=== PATIENT | male | born 1980 | race Two or more races ===

== ENCOUNTER 2024-04-02 14:29 | Outpatient (AMB) | payer MEDICAID, SELFPAY ==
[2024-04-02 14:48] VITALS: BP 103/70; PULSE 18; RESP 18; TEMP 36.3; O2SAT 97; BMI 32.8
--- NOTE | 2024-04-02 14:48 | PD.RESCLINIC ---
Vital Signs 04/02/24 14:48 Height 1.7 m Height Method Stated Weight 94.858 kg Weight Measurement Method Standing Scale BMI 32.8 BP 103/70 Blood Pressure Source Automatic Cuff Blood Pressure Location Left Upper Arm Position Sitting Respiration 18 Pulse 18 L Pulse Source Monitor Temp 97.3 F Temp Source Oral Pulse Oximetry (%) 97 Oxygen Delivery Method Room Air Allergies/Meds Allergies & Medications Allergies No Known Allergies Allergy (Verified 03/09/24 14:42) Medication Reconciliation terbinafine HCl 250 mg tablet 250 mg PO QDAY 2 months #30 tabs 12/08/23 [Rx Confirmed 04/02/24] compress.stocking,knee,reg,med ([employer]) #2 ea 01/12/24 [Rx Confirmed 04/02/24] comp.stocking,thigh,long,large #2 ea 02/13/24 [Rx Confirmed 04/02/24] doxycycline hyclate 100 mg capsule 100 mg PO BID paronychia #20 caps 03/03/24 [Rx Confirmed 04/02/24] MA Intake Visit Data Collection New Patient or Established: Established Patient (seen at [facility] within 3 years) Seen by Clinical Staff ONLY (RN/MA): No Pain Present Currently: No Compensation Programs Manager Required: Yes PCP or OBGYN visit in last 3 months: No Do You Feel Safe at Home: Yes Authorities Contacted: N/A Smoking Status Smoking Status: Never smoker Immunization / Flu Flu Vaccine in the Last 12 Months: No Flu Vaccine Exclusion Criteria: Refused by Patient Past Medical History Past Medical History CARDIAC: Negative Congestive Heart Failure RESPIRATORY: Negative Chronic Obstructive Pulmonary Disease (COPD) GENITOURINARY: Negative Renal Disease ENDOCRINE: Negative Diabetes Mellitus Type 1 or Diabetes Mellitus Type 2 Social History SMOKING STATUS: Smoking status: Never smoker ALCOHOL: Alcohol Intake: Never LIVES WITH: Lives With: Family Patient Portal Questionaires Social History Tobacco History Smoking Status: Never smoker Alcohol History Alcohol Intake: Never Domestic Abuse History Do You Feel Safe at Home: Yes Review of Systems Report any current symptoms Only answer those that you have currently: Past Medical History Past Medical History Have you ever been diagnosed with any of the following: Cardiology Problems Congestive Heart Failure: No Respiratory Problems Chronic Obstructive Pulmonary Disease (COPD): No Genital/Urinary Problems Renal Disease: No Endocrine Problems Diabetes Mellitus Type 1: No Diabetes Mellitus Type 2: No History of Present Illness LUCILA Park is a 42-year-old male with history of obesity grade 1 who pre?sented with a chief complaint of right lower extremity pain and swelling. He was found to have sepsis secondary to right lower extremity cellulitis. He continues to have fevers however per ID, this is expected in Streptococcus A cellulitis. Obtained MRI of the lower extremity that showed no abscess formation. Blood cultures are negative to date. ID recommended Keflex and doxycycline for 10-day course with continued elevation of limb. Transaminitis with elevated bilirubin: Downtrended , MRCP showed no common bile duct dilation. 08/13/2023 : Patient presented to the clinic for f/u appt for LLE cellulitis. Patient currently on Doxycycline + Keflex as per ID recommendations. Patient endorses improvement of swelling however now has sero-sanguinous discharge from the swelling on the dorsal aspect of the left foot. Patient also endorsed poor pain control with Celecoxib, he was given another Rx for Tramadol 100mg PRN for 8/10 pain. We will reassess next week, wound care referral placed. Patient may need surgical referral next week if possible underlying abscess formation takes place. F/u appt for next week. 08/20/2023: Patient presented for F/U appt after antibiotic course completion. Pruritis and discharge improved with Mupirocin ointment application. However, patients pain continues to be 8/10. On examination, 2+ Edema up to the RT foot ankle and skin pigmentation 2/2 extravasation, sero-sanguinous discharge on RT dorsal foot. Pt counseled on applying compression bandage to help reduce edema, gauze and crepe bandage applied at the clinic. He is scheduled to establish care at the wound care center on August 25 2023, if pain not controlled with Tramadol, wound care to advance to [place] per their assessment. He has completed the antibiotic course, given improvement of symptoms, we will hold off on antibiotics and start wound care for now. Disability forms were signed. Patient to f/u with us in September,. 08/26/2023: 1 week patient follow-up after being referred to wound clinic, patient's extremities significantly improved only ulcer with serosanguineous discharge noted, covered, being followed by wound care outpatient. Patient refers pain still not under control, oxycodone and Tylenol sent for 10 more days, reevaluate in 3 weeks. Patient denies fever, chills. Cellulitis resolved, antibiotic course finished. 09/03/2023: Patient presents to [facility] for follow up visit. Patient noted to have recent wound care visit where his RLE, dorsal wound was debrided with debridement of the right dorsal foot wound with pathology report showing gangrenous tissue with sheets of neutrophils, and negative for malignancy, negative for fungal elements by GMS special stain, negative for acid-fast organisms by acid-fast bacteria special stain.. Patient also noted that he has been having significant pain at the site of the wound which has disturbed his sleep. He noted that he had been taking Acetaminophen 650 ER q8hrs and oxycodone 10 mg once a day for pain management. Patient was advised to increase oxycodone to 10 mg BID as had been previously prescribed. 09/16/2023 : Follow up visit, patient still undergoing weekly debridement at wound clinic due to gangrenous tissue, patient still has an open ulcer with serosanguinous drainage, non purulent, refers severe pain 9/10, specially at night and while undergoing wound care. During last visit patient's oxycodone dose was increased to BID and refers adequeate control at that dose, we will continue same oxycodone dose for the next month since patient will still need extensive wound care debridement given presense of gangrenous tissue. At next appointment we will try to taper down oxy dose to qday, if tolerated. Patient also noted to have onychomycosis, requesting treatment, Terbinafine qday prescribed for 12 weeks. Continue with wound care appointments and follow up with us in 3 weeks. 10/01/2023 : Here for f/u visit. He is still f/u weekly at the wound clinic for the RT dorsal foot open ulcer. Pt continues to have minimal serosanguinous discharge but pain <3/10. He was given oxycodone BID but advised to only take PRN now. He is switching his insurance and will require authorization for wound care again. Given resolution of swelling form the cellulitis, we recommended removal of pressure bandage. Wound dressing still in place. Encouraged to ambulate with walker, as tolerated. F/u scheduled for 2 months from today. 12/08/2023 : He is here for follow up visit. he is continuously following with wound care his last visit with wound care was on 12/03/2023. He wants refill for his norco and terbinafine. He has a vascular surgeon follow up . His pain is well controlled with norco . Denies nausea, vomiting, pain abdomen, still walks with a waker. 12/12/2023 (Dr Rogers) : Patient presented for a follow-up visit. Continuing wound care at this time, as per economic specialist recommendations from 12/03/2023, patient is to continue wound care irrigation with normal saline, with leg elevation when at rest, and use of compression socks when ambulating. Patient has chronic venous insufficiency causing hyperpigmentation due to extravasation. Mother present in clinic with the patient who had concerns about the hyperpigmentation, all questions answered in detail. Patient to continue following wound care instructions and get 30-40 mm Hg compression socks for ambulation to prevent edema. 01/12/24 : Patient was seen as a walk in. Patient complains of some swelling of the right lower extremities. He continues to have pain that is about 5/10 on the right leg when it swells and has used over the counter tylenol which relieves the pain. Patient denies any other symptoms including SOB, chest pain, palpitations, nausea or vomiting. He has also had a cough with subjective chills and fevers in the past week. Patient was advised to continue taking over the counter tylenol for the leg swelling and follow up with vasacular surgeon for which they have an upcoming appointment for his venous insuficiency. Patient was prescribed compression stockings. 02/13/24 : Patient presented for follow-up appointment, has been consistently following up with wound care at the clinic. He was previously seen on January [address] Rogers at the resident clinic. Patient was advised to take as needed Tylenol for the right lower extremity pain, he was also prescribed compression stockings in November 2023. On further inquiry, patient complains of developing nodular swellings with the use of compression stocking, a new order for large circumference compression stockings placed today. Patient's right lower extremity dorsal ulcer has completely healed, but continues to have extravasation and skin changes up to mid shins. Patient understands and agrees to continue using compression stockings as tolerated. 04/02/2024: Patient seen for follow-up appointment. Seen last month for paronychia/ingrown toenail, prescribed doxycycline, completed full course. Toe symptoms have resolved. Continues to follow with vascular surgery for chronic venous insufficiency. Using compression stockings as tolerated. Continuing oral terbinafine for onychomycosis. Reports no further ulceration on right foot dorsum. Needs updating of routine labs. Review of Systems Review of Systems Narrative Review of Systems: GENERAL: Denies fevers/chills or diaphoresis. HEENT: Denies headache or visual/hearing changes. Denies nasal discharge. NEURO: Denies unusual weakness or difficulty speaking. CARDIO: Denies chest pain or palpitations. PULM: Denies SOB, coughing, or wheezing. GI: Denies abdominal pain, N/V/C/D. Reports having BMs URO: Denies burning/itching/pain/urinary changes. ARC WELDER: Denies menstrual changes, hot flashes. MSK/EXT/SKIN: Denies joint/skeletal/muscle pain, issues/changes in upper or lower extremities, itchiness, or superficial pain. PSYCH: Cooperative, pleasant mood & affect. The rest of the review of systems is otherwise negative. Objective/Exam Narrative Physical exam: Constitutional Alert, oriented x3 and comfortable HEENT Vision grossly intact. Patent nares. Trachea midline. Respiratory Chest normal on inspection and clear to auscultation bilaterally. Cardiovascular S1 and S2 audible, RRR. No murmurs or carotid bruit. No gross JVD. Abdominal Soft and non tender to palpation in all quadrants. BS + Genitourinary No bladder tenderness, no flank pain. Normal to palpation. Musculoskeletal Extremities tone within normal limits. No LE edema. Neurological CN II - XII grossly intact. Extremity motor and sensation grossly intact. Skin Warm, dry and intact. Healed fibrous scar, dorsal RT foot Psychiatric Patient has a good affect, is cooperative. Assessment & Plan Diagnosis / Problem List (1) Onychomycosis: Status: Acute Assessment & Plan: -Patient has BOBBI big toenails fungus -Patient states he completed 6-9weeks of terbinafine, but does not remember Plan: -Using terbinafine antifungal ointment PRN (2) Chronic venous insufficiency of lower extremity: Status: Acute Assessment & Plan: Chronic and stable Plan: -Continue using compression stockings Plan Patient is back to baseline. Healed scar post abscess of RT dorsal foot. Advised to follow up in 6 months with labs. Continue compression socks during the day Orders: Orders Comprehensive Metabolic Panel 1 Month L03.039 - Cellulitis of unspecified toe Lipid Panel 1 Month L03.039 - Cellulitis of unspecified toe CBC 1 Month I87.2 - Venous insufficiency (chronic) (peripheral) Ambulatory Hemoglobin A1C 1 Month B35.1 - Tinea unguium Thyroid Stimulating Hormone 1 Month B35.1 - Tinea unguium Additional Assessment Attending note: I, Pietro Pitts MD, attest that I was physically present for the gould portions of the service and evaluated the patient with the resident and I reviewed and discussed the case with the resident and agree with the resident's findings and plans of care as documented above. Follow-up visit. Has had resolution of paronychia. Continued stasis along with stasis changes in lower extremity. Continuing to use compression stockings. We will update labs today. Please note: The pulse documented as 18 for today's visit is incorrect, pulse rate is in the 70s. Pietro Pitts MD Physician Billing Established Patient Established Patient: E/M Level 3-CPT 52488 Office Procedures [facility] Level of Care Nursing/Assessment Patient Status: Established Patient Nursing Assessment/Reassessment: Medication Reconciliation, Update PMH in EMR and Vital Signs Coordination of Care: Complex Care and Chronic Disease 1-5, Consent,records obtained, informed consent, Education Simp Pt/Fam, Lab and Imaging orders and Staff clarify orders Established Patient Charge Established Patient Point Assignment: 100 Established Patient Point Charge: EP Level 3 (80-115)
== END 2024-04-02 15:06 | disposition home or self-care (01) ==
LOC: HODAHC 14:29
PROVIDERS: PCP Student in an Organized Health Care Education/Training Program; Referring Provider Student in an Organized Health Care Education/Training Program; Supervising Provider Internal Medicine; Visit Provider Student in an Organized Health Care Education/Training Program
DX: I87.2 Venous insufficiency (chronic) (peripheral) (principal); B35.1 Tinea unguium
CPT/HCPCS: 99213; G0463

== ENCOUNTER 2024-07-05 10:22 | Outpatient (AMB) | payer MEDICAID, SELFPAY ==
--- NOTE | 2024-07-05 10:41 | ACNOTE_ITS ---
Vital Signs 07/05/24 10:46 Height 1.7 m Height Method Stated Weight 97.976 kg Weight Measurement Method Standing Scale BMI 33.9 BP 100/62 Blood Pressure Source Automatic Cuff Blood Pressure Location Left Upper Arm Position Sitting Respiration 16 Pulse 75 Pulse Source Monitor Temp 97.3 F Temp Source Temporal Artery Scan Pulse Oximetry (%) 96 Oxygen Delivery Method Room Air Allergies/Meds Allergies & Medications Allergies No Known Allergies Allergy (Verified 07/05/24 10:47) Medication Reconciliation terbinafine HCl 250 mg tablet 250 mg PO QDAY 2 months #30 tabs 12/08/23 [Rx Confirmed 07/05/24] compress.stocking,knee,reg,med ([employer]) #2 ea 01/12/24 [Rx Confirmed 07/05/24] comp.stocking,thigh,long,large #2 ea 02/13/24 [Rx Confirmed 07/05/24] doxycycline hyclate 100 mg capsule 100 mg PO BID paronychia #20 caps 03/03/24 [Rx Confirmed 07/05/24] MA Intake Visit Data Collection New Patient or Established: Established Patient (seen at [facility] within 3 years) Seen by Clinical Staff ONLY (RN/MA): No Pain Present Currently: No Pain scale:: 0 Pain Scale Used: Henao-Pastrana/Numerical Cardroom Manager Required: No PCP or OBGYN visit in last 3 months: No Hx Now: No Do You Feel Safe at Home: Yes Authorities Contacted: N/A Smoking Status Smoking Status: Never smoker Immunization / Flu Flu Vaccine in the Last 12 Months: No Flu Vaccine Exclusion Criteria: No Exclusion Criteria Past Medical History Past Medical History CARDIAC: Negative Congestive Heart Failure RESPIRATORY: Negative Chronic Obstructive Pulmonary Disease (COPD) GENITOURINARY: Negative Renal Disease ENDOCRINE: Negative Diabetes Mellitus Type 1 or Diabetes Mellitus Type 2 Social History SMOKING STATUS: Smoking status: Never smoker ALCOHOL: Alcohol Intake: Never LIVES WITH: Lives With: Family Patient Portal Questionaires Social History Tobacco History Smoking Status: Never smoker Alcohol History Alcohol Intake: Never Domestic Abuse History Do You Feel Safe at Home: Yes Review of Systems Report any current symptoms Only answer those that you have currently: Past Medical History Past Medical History Have you ever been diagnosed with any of the following: Cardiology Problems Congestive Heart Failure: No Respiratory Problems Chronic Obstructive Pulmonary Disease (COPD): No Genital/Urinary Problems Renal Disease: No Endocrine Problems Diabetes Mellitus Type 1: No Diabetes Mellitus Type 2: No History of Present Illness [facility] Kristina Park is a 42-year-old male with history of obesity grade 1 who pre?sented with a chief complaint of right lower extremity pain and swelling. He was found to have sepsis secondary to right lower extremity cellulitis. He continues to have fevers however per ID, this is expected in Streptococcus A cellulitis. Obtained MRI of the lower extremity that showed no abscess formation. Blood cultures are negative to date. ID recommended Keflex and doxycycline for 10-day course with continued elevation of limb. Transaminitis with elevated bilirubin: Downtrended , MRCP showed no common bile duct dilation. 08/13/2023 : Patient presented to the clinic for f/u appt for LLE cellulitis. Patient currently on Doxycycline + Keflex as per ID recommendations. Patient endorses improvement of swelling however now has sero-sanguinous discharge from the swelling on the dorsal aspect of the left foot. Patient also endorsed poor pain control with Celecoxib, he was given another Rx for Tramadol 100mg PRN for 8/10 pain. We will reassess next week, wound care referral placed. Patient may need surgical referral next week if possible underlying abscess formation takes place. F/u appt for next week. 08/20/2023: Patient presented for F/U appt after antibiotic course completion. Pruritis and discharge improved with Mupirocin ointment application. However, patients pain continues to be 8/10. On examination, 2+ Edema up to the RT foot ankle and skin pigmentation 2/2 extravasation, sero-sanguinous discharge on RT dorsal foot. Pt counseled on applying compression bandage to help reduce edema, gauze and crepe bandage applied at the clinic. He is scheduled to establish care at the wound care center on August 25 2023, if pain not controlled with Tramadol, wound care to advance to [place] per their assessment. He has completed the antibiotic course, given improvement of symptoms, we will hold off on antibiotics and start wound care for now. Disability forms were signed. Patient to f/u with us in September,. 08/26/2023: 1 week patient follow-up after being referred to wound clinic, patient's extremities significantly improved only ulcer with serosanguineous discharge noted, covered, being followed by wound care outpatient. Patient refers pain still not under control, oxycodone and Tylenol sent for 10 more days, reevaluate in 3 weeks. Patient denies fever, chills. Cellulitis resolved, antibiotic course finished. 09/03/2023: Patient presents to [facility] for follow up visit. Patient noted to have recent wound care visit where his RLE, dorsal wound was debrided with d ebridement of the right dorsal foot wound with pathology report showing gangrenous tissue with sheets of neutrophils, and negative for malignancy, negative for fungal elements by GMS special stain, negative for acid-fast organisms by acid-fast bacteria special stain.. Patient also noted that he has been having significant pain at the site of the wound which has disturbed his sleep. He noted that he had been taking Acetaminophen 650 ER q8hrs and oxycodone 10 mg once a day for pain management. Patient was advised to increase oxycodone to 10 mg BID as had been previously prescribed. 09/16/2023 : Follow up visit, patient still undergoing weekly debridement at wound clinic due to gangrenous tissue, patient still has an open ulcer with serosanguinous drainage, non purulent, refers severe pain 9/10, specially at night and while undergoing wound care. During last visit patient's oxycodone dose was increased to BID and refers adequeate control at that dose, we will continue same oxycodone dose for the next month since patient will still need extensive wound care debridement given presense of gangrenous tissue. At next appointment we will try to taper down oxy dose to qday, if tolerated. Patient also noted to have onychomycosis, requesting treatment, Terbinafine qday prescribed for 12 weeks. Continue with wound care appointments and follow up with us in 3 weeks. 10/01/2023 : Here for f/u visit. He is still f/u weekly at the wound clinic for the RT dorsal foot open ulcer. Pt continues to have minimal serosanguinous discharge but pain <3/10. He was given oxycodone BID but advised to only take PRN now. He is switching his insurance and will require authorization for wound care again. Given resolution of swelling form the cellulitis, we recommended removal of pressure bandage. Wound dressing still in place. Encouraged to ambulate with walker, as tolerated. F/u scheduled for 2 months from today. 12/08/2023 : He is here for follow up visit. he is continuously following with wound care his last visit with wound care was on 12/03/2023. He wants refill for his norco and terbinafine. He has a vascular surgeon follow up . His pain is well controlled with norco . Denies nausea, vomiting, pain abdomen, still walks with a waker. 12/12/2023 (Dr Rogers) : Patient presented for a follow-up visit. Continuing wound care at this time, as per technical applications specialist recommendations from 12/03/2023, patient is to continue wound care irrigation with normal saline, with leg elevation when at rest, and use of compression socks when ambulating. Patient has chronic venous insufficiency causing hyperpigmentation due to extravasation. Mother present in clinic with the patient who had concerns about the hyperpigmentation, all questions answered in detail. Patient to continue following wound care instructions and get 30-40 mm Hg compression socks for ambulation to prevent edema. 01/12/24 : Patient was seen as a walk in. Patient complains of some swelling of the right lower extremities. He continues to have pain that is about 5/10 on the right leg when it swells and has used over the counter tylenol which relieves the pain. Patient denies any other symptoms including SOB, chest pain, palpitations, nausea or vomiting. He has also had a cough with subjective chills and fevers in the past week. Patient was advised to continue taking over the counter tylenol for the leg swelling and follow up with vasacular surgeon for which they have an upcoming appointment for his venous insuficiency. Patient was prescribed compression stockings. 02/13/24 : Patient presented for follow-up appointment, has been consistently following up with wound care at the clinic. He was previously seen on January [address] Rogers at the resident clinic. Patient was advised to take as needed Tylenol for the right lower extremity pain, he was also prescribed compression stockings in November 2023. On further inquiry, patient complains of developing nodular swellings with the use of compression stocking, a new order for large circumference compression stockings placed today. Patient's right lower extremity dorsal ulcer has completely healed, but continues to have extravasation and skin changes up to mid shins. Patient understands and agrees to continue using compression stockings as tolerated. 04/02/2024: Patient seen for follow-up appointment. Seen last month for paronychia/ingrown toenail, prescribed doxycycline, completed full course. Toe symptoms have resolved. Continues to follow with vascular surgery for chronic venous insufficiency. Using compression stockings as tolerated. Continuing oral terbinafine for onychomycosis. Reports no further ulceration on right foot dorsum. Needs updating of routine labs. 07/06/2023: Patient seen in office for walk in appointment. Patient has complaint of ingrown toenail with mild swelling and tenderness. Patient has completed course of antibiotics. Patient has noted tenderness and mild swelling of right great toe for 2 weeks, unchanged. Patient has difficulty cutting nails due to swelling, hoped provider could cut his nail for him. It was explained patient would benefit from podiatry referral. Toe was examined, tonail was yellow, cracked, jagged, ingrown. Toe was swollen and tender, no drainage, clean and dry. Does not appear infected. Will send referral fot podiatry and wound care. Review of Systems Review of Systems Systems Reviewed: All systems reviewed, normal except as documented Objective/Exam Narrative Physical exam: PE: Gen: Well-developed and well-nourished. HEENT: NCAT, PERRLA, EOMI, MMM, anicteric conjunctivae. CVS: normal S1 and S2. RRR. No M/R/G. Resp: CTA B/L. No rhonchi, rales, crackles or wheezing. Abd: soft, non-tender, non-distended. BS+ in all 4 quadrants. MSK: Good ROM in BUE & BLE. No edema or rash. Right great toe: mild swelling, tenderness without purulence and drainage. Toe nail is cracked, jagged, yellow, ingrown. Neuro: CN II-XII grossly intact. Strength 5/5 in BUE & BLE. Alert and oriented x3. Psych: appropriate mood and affect. Assessment & Plan Diagnosis / Problem List (1) Ingrown right big toenail: Status: Acute Assessment & Plan: Patient presents with two weeks mild swelling and tenderness of right great toe secondary to ingrown toenail. Has been unable to cut tonail himself. Toe has no drainage, minimally tender. Plan: -referral podiatry -referral wound care (2) Chronic venous insufficiency of lower extremity: Status: Acute Assessment & Plan: Chronic and stable Plan: -Continue using compression stockings Orders: Referrals Wound Healing L60.0 - Ingrowing nail Podiatry L60.0 - Ingrowing nail Office Procedures [facility] Level of Care Nursing/Assessment Patient Status: Established Patient Nursing Assessment/Reassessment: Medication Reconciliation, Update PMH in EMR and Vital Signs Coordination of Care: Complex Care and Chronic Disease 1-5, Consent,records obtained, informed consent, Education Simp Pt/Fam and Staff clarify orders Established Patient Charge Established Patient Point Assignment: 85 Established Patient Point Charge: EP Level 3 (80-115)
[2024-07-05 10:46] VITALS: BP 100/62; PULSE 75; RESP 16; TEMP 36.3; O2SAT 96; BMI 33.9
== END 2024-07-05 11:20 | disposition home or self-care (01) ==
PROVIDERS: PCP Student in an Organized Health Care Education/Training Program; Referring Provider Student in an Organized Health Care Education/Training Program; Supervising Provider Internal Medicine
DX: L60.0 Ingrowing nail (principal); I87.2 Venous insufficiency (chronic) (peripheral)
CPT/HCPCS: 99213; G0463

== ENCOUNTER → 2024-07-15 | Outpatient (CLI) | payer MEDICAID, SELFPAY | END | disposition home or self-care (01) | PROVIDERS: PCP Family Medicine; Visit Provider Student in an Organized Health Care Education/Training Program | DX: I87.313 Chronic venous hypertension (idiopathic) with ulcer of bilateral lower extremity (principal); L97.512 Non-pressure chronic ulcer of other part of right foot with fat layer exposed; L81.9 Disorder of pigmentation, unspecified; R60.0 Localized edema; L85.3 Xerosis cutis; I10 Essential (primary) hypertension | CPT/HCPCS: 99214; A9270; G0463 ==

== ENCOUNTER → 2024-07-23 | Outpatient (CLI) | payer MEDICAID, SELFPAY | END | disposition home or self-care (01) | LOC: SWHD 09:21 | PROVIDERS: PCP Student in an Organized Health Care Education/Training Program; Referring Provider Student in an Organized Health Care Education/Training Program; Visit Provider Surgery | DX: I87.313 Chronic venous hypertension (idiopathic) with ulcer of bilateral lower extremity (principal); L97.512 Non-pressure chronic ulcer of other part of right foot with fat layer exposed; L81.9 Disorder of pigmentation, unspecified; L85.3 Xerosis cutis; I10 Essential (primary) hypertension | CPT/HCPCS: 99212; A9270; G0463 ==

== ENCOUNTER 2024-07-26 14:42 | Outpatient (AMB) | payer MEDICAID, SELFPAY ==
--- NOTE | 2024-07-26 15:16 | ACNOTE_ITS ---
Vital Signs 07/26/24 15:17 Height 1.7 m Height Method Stated Weight 98.6 kg Weight Measurement Method Standing Scale BMI 34.1 BP 105/71 Blood Pressure Source Automatic Cuff Blood Pressure Location Left Upper Arm Position Sitting Respiration 16 Pulse 82 Pulse Source Monitor Temp 97.3 F Temp Source Temporal Artery Scan Pulse Oximetry (%) 94 L Oxygen Delivery Method Room Air Allergies/Meds Allergies & Medications Allergies No Known Allergies Allergy (Verified 07/26/24 15:18) Medication Reconciliation terbinafine HCl 250 mg tablet 250 mg PO QDAY 2 months #30 tabs 12/08/23 [Rx Confirmed 07/26/24] compress.stocking,knee,reg,med ([employer]) #2 ea 01/12/24 [Rx Confirmed 07/26/24] comp.stocking,thigh,long,large #2 ea 02/13/24 [Rx Confirmed 07/26/24] doxycycline hyclate 100 mg capsule 100 mg PO BID paronychia #20 caps 03/03/24 [Rx Confirmed 07/26/24] MA Intake Visit Data Collection New Patient or Established: Established Patient (seen at [facility] within 3 years) Seen by Clinical Staff ONLY (RN/MA): No Pain Present Currently: No Pain scale:: 0 Pain Scale Used: Henao-Pastrana/Numerical Event Planning Intern Required: No PCP or OBGYN visit in last 3 months: No Hx Now: No Do You Feel Safe at Home: Yes Authorities Contacted: N/A Smoking Status Smoking Status: Never smoker Immunization / Flu Flu Vaccine in the Last 12 Months: No Flu Vaccine Exclusion Criteria: No Exclusion Criteria Past Medical History Past Medical History CARDIAC: Negative Congestive Heart Failure RESPIRATORY: Negative Chronic Obstructive Pulmonary Disease (COPD) GENITOURINARY: Negative Renal Disease ENDOCRINE: Negative Diabetes Mellitus Type 1 or Diabetes Mellitus Type 2 Social History SMOKING STATUS: Smoking status: Never smoker ALCOHOL: Alcohol Intake: Never LIVES WITH: Lives With: Family Patient Portal Questionaires Social History Tobacco History Smoking Status: Never smoker Alcohol History Alcohol Intake: Never Domestic Abuse History Do You Feel Safe at Home: Yes Review of Systems Report any current symptoms Only answer those that you have currently: Past Medical History Past Medical History Have you ever been diagnosed with any of the following: Cardiology Problems Congestive Heart Failure: No Respiratory Problems Chronic Obstructive Pulmonary Disease (COPD): No Genital/Urinary Problems Renal Disease: No Endocrine Problems Diabetes Mellitus Type 1: No Diabetes Mellitus Type 2: No History of Present Illness [employer] [employer] [facility] Kristina Park is a 42-year-old male with history of obesity grade 1 who pre?sented with a chief complaint of right lower extremity pain and swelling. He was found to have sepsis secondary to right lower extremity cellulitis. He continues to have fevers however per ID, this is expected in Streptococcus A cellulitis. Obtained MRI of the lower extremity that showed no abscess formation. Blood cultures are negative to date. ID recommended Keflex and doxycycline for 10-day course with continued elevation of limb. Transaminitis with elevated bilirubin: Downtrended , MRCP showed no common bile duct dilation. 08/13/2023 : Patient presented to the clinic for f/u appt for LLE cellulitis. Patient currently on Doxycycline + Keflex as per ID recommendations. Patient endorses improvement of swelling however now has sero-sanguinous discharge from the swelling on the dorsal aspect of the left foot. Patient also endorsed poor pain control with Celecoxib, he was given another Rx for Tramadol 100mg PRN for 8/10 pain. We will reassess next week, wound care referral placed. Patient may need surgical referral next week if possible underlying abscess formation takes place. F/u appt for next week. 08/20/2023: Patient presented for F/U appt after antibiotic course completion. Pruritis and discharge improved with Mupirocin ointment application. However, patients pain continues to be 8/10. On examination, 2+ Edema up to the RT foot ankle and skin pigmentation 2/2 extravasation, sero-sanguinous discharge on RT dorsal foot. Pt counseled on applying compression bandage to help reduce edema, gauze and crepe bandage applied at the clinic. He is scheduled to establish care at the wound care center on August 25 2023, if pain not controlled with Tramadol, wound care to advance to [facility] per their assessment. He has completed the antibiotic course, given improvement of symptoms, we will hold off on antibiotics and start wound care for now. Disability forms were signed. Patient to f/u with us in September,. 08/26/2023: 1 week patient follow-up after being referred to wound clinic, patient's extremities significantly improved only ulcer with serosanguineous discharge noted, covered, being followed by wound care outpatient. Patient refers pain still not under control, oxycodone and Tylenol sent for 10 more days, reevaluate in 3 weeks. Patient denies fever, chills. Cellulitis resolved, antibiotic course finished. 09/03/2023: Patient presents to [facility] for follow up visit. Patient noted to have recent wound care visit where his RLE, dorsal wound was debrided with d ebridement of the right dorsal foot wound with pathology report showing gangrenous tissue with sheets of neutrophils, and negative for malignancy, negative for fungal elements by GMS special stain, negative for acid-fast organisms by acid-fast bacteria special stain.. Patient also noted that he has been having significant pain at the site of the wound which has disturbed his sleep. He noted that he had been taking Acetaminophen 650 ER q8hrs and oxycodone 10 mg once a day for pain management. Patient was advised to increase oxycodone to 10 mg BID as had been previously prescribed. 09/16/2023 : Follow up visit, patient still undergoing weekly debridement at wound clinic due to gangrenous tissue, patient still has an open ulcer with serosanguinous drainage, non purulent, refers severe pain 9/10, specially at night and while undergoing wound care. During last visit patient's oxycodone dose was increased to BID and refers adequeate control at that dose, we will continue same oxycodone dose for the next month since patient will still need extensive wound care debridement given presense of gangrenous tissue. At next appointment we will try to taper down oxy dose to qday, if tolerated. Patient also noted to have onychomycosis, requesting treatment, Terbinafine qday prescribed for 12 weeks. Continue with wound care appointments and follow up with us in 3 weeks. 10/01/2023 : Here for f/u visit. He is still f/u weekly at the wound clinic for the RT dorsal foot open ulcer. Pt continues to have minimal serosanguinous discharge but pain <3/10. He was given oxycodone BID but advised to only take PRN now. He is switching his insurance and will require authorization for wound care again. Given resolution of swelling form the cellulitis, we recommended removal of pressure bandage. Wound dressing still in place. Encouraged to ambulate with walker, as tolerated. F/u scheduled for 2 months from today. 12/08/2023 : He is here for follow up visit. he is continuously following with wound care his last visit with wound care was on 12/03/2023. He wants refill for his norco and terbinafine. He has a vascular surgeon follow up . His pain is well controlled with norco . Denies nausea, vomiting, pain abdomen, still walks with a waker. 12/12/2023 (Dr Rogers) : Patient presented for a follow-up visit. Continuing wound care at this time, as per collateral specialist recommendations from 12/03/2023, patient is to continue wound care irrigation with normal saline, with leg elevation when at rest, and use of compression socks when ambulating. Patient has chronic venous insufficiency causing hyperpigmentation due to extravasation. Mother present in clinic with the patient who had concerns about the hyperpigmentation, all questions answered in detail. Patient to continue following wound care instructions and get 30-40 mm Hg compression socks for ambulation to prevent edema. 01/12/24 : Patient was seen as a walk in. Patient complains of some swelling of the right lower extremities. He continues to have pain that is about 5/10 on the right leg when it swells and has used over the counter tylenol which relieves the pain. Patient denies any other symptoms including SOB, chest pain, palpitations, nausea or vomiting. He has also had a cough with subjective chills and fevers in the past week. Patient was advised to continue taking over the counter tylenol for the leg swelling and follow up with vasacular surgeon for which they have an upcoming appointment for his venous insuficiency. Patient was prescribed compression stockings. 02/13/24 : Patient presented for follow-up appointment, has been consistently following up with wound care at the clinic. He was previously seen on January [address] Rogers at the resident clinic. Patient was advised to take as needed Tylenol for the right lower extremity pain, he was also prescribed compression stockings in November 2023. On further inquiry, patient complains of developing nodular swellings with the use of compression stocking, a new order for large circumference compression stockings placed today. Patient's right lower extremity dorsal ulcer has completely healed, but continues to have extravasation and skin changes up to mid shins. Patient understands and agrees to continue using compression stockings as tolerated. 04/02/2024: Patient seen for follow-up appointment. Seen last month for paronychia/ingrown toenail, prescribed doxycycline, completed full course. Toe symptoms have resolved. Continues to follow with vascular surgery for chronic venous insufficiency. Using compression stockings as tolerated. Continuing oral terbinafine for onychomycosis. Reports no further ulceration on right foot dorsum. Needs updating of routine labs. 07/06/2023: Patient seen in office for walk in appointment. Patient has complaint of ingrown toenail with mild swelling and tenderness. Patient has completed course of antibiotics. Patient has noted tenderness and mild swelling of right great toe for 2 weeks, unchanged. Patient has difficulty cutting nails due to swelling, hoped provider could cut his nail for him. It was explained patient would benefit from podiatry referral. Toe was examined, tonail was yellow, cracked, jagged, ingrown. Toe was swollen and tender, no drainage, clean and dry. Does not appear infected. Will send referral fot podiatry and wound care. 07/26/2024: Patient seen in the office as walk-in appointment. Patient is following up for his right big toe ingrown nail. He followed up with wound clinic on Friday and plan was for no further intervention or need for antibiotic s. Patient is concerned about swelling of his lower extremities however on physical examination there is no swelling or erythema. Patient is wearing 1 sock that has minimal compression on the right foot. There is no discharge from the right first toe and patient denies any fevers, chills, dizziness, weakness, shortness of breath or palpitations. Patient was reassured that at this time there needs to be no further intervention as the toe seems to be healing well and he was counseled on foot hygiene especially as he seems to be cutting his toenails too short which leads to the ingrown toenail. Patient had further questions about his disability and he was informed that at this time he would not qualify for disability as his venous insufficiency with wounds have completely resolved and patient has been discharged from both podiatry and wound clinic without any further interventions at this time. Patient was adamant about not being discharged for his disability but previous doctors as he continues to have swelling of his foot. Patient was once again counseled about venous insufficiency and the need for leg elevation and compression stockings which he seems to be noncompliant with. Review of Systems Review of Systems Systems Reviewed: All systems reviewed, normal except as documented Objective/Exam Narrative Physical exam: Constitutional: Well nourished and in no acute distress Head: Normocephalic/Atraumatic Eyes: PERRL , no conjunctival injection , symmetrical lids. ENMT: Moist Mucous Membranes, No trauma or injury. Neck: Supple to palpation, No JVD CVS: RRR, S1 and S2 present, no murmurs, rubs or gallops . RESP: CTAB, no SOB, no rales, rhonchi or wheezing. No respiratory Distress GI: Normal BS, Nontender/Nondistended. MSK: Full range of motion, No trauma or deformities or masses. Skin: Warm to touch, Dry. No rashes or lesions. No hematomas. The right fifth toe has a healed ingrown nail on the medial aspect without any discharge erythema or swelling. Neuro: co founder & ceo II-XII grossly intact. Sensation grossly intact. Psych: (AAO) x3 . Appropriate mood and affect. Assessment & Plan Diagnosis / Problem List (1) Ingrown right big toenail: Status: Acute Assessment & Plan: Patient symptoms that completely resolved at this time Plan: ? Patient advised to follow-up with podiatry if he continues to have problems with his toenail ? Patient advised to return to our clinic or to the ER if he starts experiencing discharge, erythema, fevers, chills and weakness (2) Chronic venous insufficiency of lower extremity: Status: Acute Assessment & Plan: Chronic and stable Patient is noncompliant with compression stockings Plan: -Patient counseled on the need for compliance with compression stockings Plan Patient can be seen as needed Additional Assessment Internal Medicine Attending Note: Case discussed with and agree with note and management plan of Resident Physician as per Resident's Note above. Issues of concern for present visit are as follows: Follow-up visit. Chart reviewed. Patient was seen by wound clinic at the end of last week, plan for no further intervention or need for antibiotics. Right big toe ingrown nail, no discharge, no systemic symptoms. Toe is healing well. Counseled on foot hygiene. Patient should follow-up with podiatry. Patient inquiring about disability. Patient previously had a disability claim for a lower extremity foot wound for which he was sent to wound clinic. He was discharged from wound care clinic at the end of November 2023. Due to workup for vascular disease/chronic venous hypertension, we had extended his period of disability. However, when forms were last completed, there was no pending issue for which there was any basis for continuing disability. He may have chronic lower extremity edema, but simply needs to wear compression stockings in order to avoid excessive swelling and subsequent skin breakdown and ulceration. We are therefore not completing any new disability forms for him, as the last forms we completed ended his period of disability. If, upon following up with podiatry, he undergo some type of surgical procedure for the right ingrown nail where he has to be off his feet for any length of time, he may be able to open a new claim, but at this time, there is nothing going on that relates to the rosario ginal claim or need for disability. Pietro Pitts MD Physician Billing Established Patient Established Patient: E/M Level 3-CPT 97393 Office Procedures [facility] Level of Care Nursing/Assessment Patient Status: Established Patient Nursing Assessment/Reassessment: Medication Reconciliation, Update PMH in EMR and Vital Signs Coordination of Care: Complex Care and Chronic Disease 1-5, Consent,records obtained, informed consent, Education Simp Pt/Fam and Staff clarify orders Established Patient Charge Established Patient Point Assignment: 85 Established Patient Point Charge: EP Level 3 (80-115)
[2024-07-26 15:17] VITALS: BP 105/71; PULSE 82; RESP 16; TEMP 36.3; O2SAT 94; BMI 34.1
== END 2024-07-26 15:29 | disposition home or self-care (01) ==
LOC: HODAHC 14:42
PROVIDERS: Supervising Provider Internal Medicine; Visit Provider Student in an Organized Health Care Education/Training Program
DX: L60.0 Ingrowing nail (principal); I87.2 Venous insufficiency (chronic) (peripheral); Z91.199 Patient's noncompliance with other medical treatment and regimen due to unspecified reason
CPT/HCPCS: 99213; G0463

== ENCOUNTER 2024-08-09 14:24 | Outpatient (AMB) | payer MEDICAID, SELFPAY ==
[2024-08-09 14:36] VITALS: BP 115/68; PULSE 86; RESP 16; TEMP 36.2; O2SAT 95; BMI 34.7
--- NOTE | 2024-08-09 14:36 | ACNOTE_ITS ---
Vital Signs 08/09/24 14:36 Height 1.7 m Height Method Stated Weight 100.244 kg Weight Measurement Method Standing Scale BMI 34.7 BP 115/68 Blood Pressure Source Automatic Cuff Blood Pressure Location Left Upper Arm Position Sitting Respiration 16 Pulse 86 Pulse Source Monitor Temp 97.2 F Temp Source Temporal Artery Scan Pulse Oximetry (%) 95 Oxygen Delivery Method Room Air Allergies/Meds Allergies & Medications Allergies No Known Allergies Allergy (Verified 08/09/24 14:40) Medication Reconciliation terbinafine HCl 250 mg tablet 250 mg PO QDAY 2 months #30 tabs 12/08/23 [Rx Confirmed 08/09/24] compress.stocking,knee,reg,med ([employer] Ultrasheer) #2 ea 01/12/24 [Rx Confirmed 08/09/24] comp.stocking,thigh,long,large #2 ea 02/13/24 [Rx Confirmed 08/09/24] doxycycline hyclate 100 mg capsule 100 mg PO BID paronychia #20 caps 03/03/24 [Rx Confirmed 08/09/24] celecoxib 200 mg capsule 200 mg PO BID PRN pain 1 month #60 caps 08/09/24 [Rx] MA Intake Visit Data Collection New Patient or Established: Established Patient (seen at [facility] within 3 years) Seen by Clinical Staff ONLY (RN/MA): No Pain Present Currently: No Pain scale:: 0 Pain Scale Used: Henao-Pastrana/Numerical Wire Coating Operator Metal Required: Yes PCP or OBGYN visit in last 3 months: Yes Hx Now: No Do You Feel Safe at Home: Yes Authorities Contacted: N/A Smoking Status Smoking Status: Never smoker Immunization / Flu Flu Vaccine in the Last 12 Months: No Flu Vaccine Exclusion Criteria: No Exclusion Criteria Past Medical History Past Medical History CARDIAC: Negative Congestive Heart Failure RESPIRATORY: Negative Chronic Obstructive Pulmonary Disease (COPD) GENITOURINARY: Negative Renal Disease ENDOCRINE: Negative Diabetes Mellitus Type 1 or Diabetes Mellitus Type 2 Social History SMOKING STATUS: Smoking status: Never smoker ALCOHOL: Alcohol Intake: Never LIVES WITH: Lives With: Family Patient Portal Questionaires Social History Tobacco History Smoking Status: Never smoker Alcohol History Alcohol Intake: Never Domestic Abuse History Do You Feel Safe at Home: Yes Review of Systems Report any current symptoms Only answer those that you have currently: Past Medical History Past Medical History Have you ever been diagnosed with any of the following: Cardiology Problems Congestive Heart Failure: No Respiratory Problems Chronic Obstructive Pulmonary Disease (COPD): No Genital/Urinary Problems Renal Disease: No Endocrine Problems Diabetes Mellitus Type 1: No Diabetes Mellitus Type 2: No History of Present Illness LUCILA Park is a 42-year-old male with history of obesity grade 1 who pre?sented with a chief complaint of right lower extremity pain and swelling. He was found to have sepsis secondary to right lower extremity cellulitis. He continues to have fevers however per ID, this is expected in Streptococcus A cellulitis. Obtained MRI of the lower extremity that showed no abscess formation. Blood cultures are negative to date. ID recommended Keflex and doxycycline for 10-day course with continued elevation of limb. Transaminitis with elevated bilirubin: Downtrended , MRCP showed no common bile duct dilation. 08/13/2023 : Patient presented to the clinic for f/u appt for LLE cellulitis. Patient currently on Doxycycline + Keflex as per ID recommendations. Patient endorses improvement of swelling however now has sero-sanguinous discharge from the swelling on the dorsal aspect of the left foot. Patient also endorsed poor pain control with Celecoxib, he was given another Rx for Tramadol 100mg PRN for 8/10 pain. We will reassess next week, wound care referral placed. Patient may need surgical referral next week if possible underlying abscess formation takes place. F/u appt for next week. 08/20/2023: Patient presented for F/U appt after antibiotic course completion. Pruritis and discharge improved with Mupirocin ointment application. However, patients pain continues to be 8/10. On examination, 2+ Edema up to the RT foot ankle and skin pigmentation 2/2 extravasation, sero-sanguinous discharge on RT dorsal foot. Pt counseled on applying compression bandage to help reduce edema, gauze and crepe bandage applied at the clinic. He is scheduled to establish care at the wound care center on August 25 2023, if pain not controlled with Tramadol, wound care to advance to [place] per their assessment. He has completed the antibiotic course, given improvement of symptoms, we will hold off on antibiotics and start wound care for now. Disability forms were signed. Patient to f/u with us in September,. 08/26/2023: 1 week patient follow-up after being referred to wound clinic, patient's extremities significantly improved only ulcer with serosanguineous discharge noted, covered, being followed by wound care outpatient. Patient refers pain still not under control, oxycodone and Tylenol sent for 10 more days, reevaluate in 3 weeks. Patient denies fever, chills. Cellulitis resolved, antibiotic course finished. 09/03/2023: Patient presents to [facility] for follow up visit. Patient noted to have recent wound care visit where his RLE, dorsal wound was debrided with debridement of the right dorsal foot wound with pathology report showing gangrenous tissue with sheets of neutrophils, and negative for malignancy, negative for fungal elements by GMS special stain, negative for acid-fast organisms by acid-fast bacteria special stain.. Patient also noted that he has been having significant pain at the site of the wound which has disturbed his sleep. He noted that he had been taking Acetaminophen 650 ER q8hrs and oxycodone 10 mg once a day for pain management. Patient was advised to increase oxycodone to 10 mg BID as had been previously prescribed. 09/16/2023 : Follow up visit, patient still undergoing weekly debridement at wound clinic due to gangrenous tissue, patient still has an open ulcer with serosanguinous drainage, non purulent, refers severe pain 9/10, specially at night and while undergoing wound care. During last visit patient's oxycodone dose was increased to BID and refers adequeate control at that dose, we will continue same oxycodone dose for the next month since patient will still need extensive wound care debridement given presense of gangrenous tissue. At next appointment we will try to taper down oxy dose to qday, if tolerated. Patient also noted to have onychomycosis, requesting treatment, Terbinafine qday prescribed for 12 weeks. Continue with wound care appointments and follow up with us in 3 weeks. 10/01/2023 : Here for f/u visit. He is still f/u weekly at the wound clinic for the RT dorsal foot open ulcer. Pt continues to have minimal serosanguinous discharge but pain <3/10. He was given oxycodone BID but advised to only take PRN now. He is switching his insurance and will require authorization for wound care again. Given resolution of swelling form the cellulitis, we recommended removal of pressure bandage. Wound dressing still in place. Encouraged to ambulate with walker, as tolerated. F/u scheduled for 2 months from today. 12/08/2023 : He is here for follow up visit. he is continuously following with wound care his last visit with wound care was on 12/03/2023. He wants refill for his norco and terbinafine. He has a vascular surgeon follow up . His pain is well controlled with norco . Denies nausea, vomiting, pain abdomen, still walks with a waker. 12/12/2023 (Dr Rogers) : Patient presented for a follow-up visit. Continuing wound care at this time, as per medical claims specialist recommendations from 12/03/2023, patient is to continue wound care irrigation with normal saline, with leg elevation when at rest, and use of compression socks when ambulating. Patient has chronic venous insufficiency causing hyperpigmentation due to extravasation. Mother present in clinic with the patient who had concerns about the hyperpigmentation, all questions answered in detail. Patient to continue following wound care instructions and get 30-40 mm Hg compression socks for ambulation to prevent edema. 01/12/24 : Patient was seen as a walk in. Patient complains of some swelling of the right lower extremities. He continues to have pain that is about 5/10 on the right leg when it swells and has used over the counter tylenol which relieves the pain. Patient denies any other symptoms including SOB, chest pain, palpitations, nausea or vomiting. He has also had a cough with subjective chills and fevers in the past week. Patient was advised to continue taking over the counter tylenol for the leg swelling and follow up with vasacular surgeon for which they have an upcoming appointment for his venous insuficiency. Patient was prescribed compression stockings. 02/13/24 : Patient presented for follow-up appointment, has been consistently following up with wound care at the clinic. He was previously seen on January [address] Rogers at the resident clinic. Patient was advised to take as needed Tylenol for the right lower extremity pain, he was also prescribed compression stockings in November 2023. On further inquiry, patient complains of developing nodular swellings with the use of compression stocking, a new order for large circumference compression stockings placed today. Patient's right lower extremity dorsal ulcer has completely healed, but continues to have extravasation and skin changes up to mid shins. Patient understands and agrees to continue using compression stockings as tolerated. 04/02/2024: Patient seen for follow-up appointment. Seen last month for paronychia/ingrown toenail, prescribed doxycycline, completed full course. Toe symptoms have resolved. Continues to follow with vascular surgery for chronic venous insufficiency. Using compression stockings as tolerated. Continuing oral terbinafine for onychomycosis. Reports no further ulceration on right foot dorsum. Needs updating of routine labs. 07/06/2023: Patient seen in office for walk in appointment. Patient has complaint of ingrown toenail with mild swelling and tenderness. Patient has completed course of antibiotics. Patient has noted tenderness and mild swelling of right great toe for 2 weeks, unchanged. Patient has difficulty cutting nails due to swelling, hoped provider could cut his nail for him. It was explained patient would benefit from podiatry referral. Toe was examined, tonail was yellow, cracked, jagged, ingrown. Toe was swollen and tender, no drainage, clean and dry. Does not appear infected. Will send referral fot podiatry and wound care. 07/26/2024: Patient seen in the office as walk-in appointment. Patient is following up for his right big toe ingrown nail. He followed up with wound clinic on Friday and plan was for no further intervention or need for antibiotics. Patient is concerned about swelling of his lower extremities however on physical examination there is no swelling or erythema. Patient is wearing 1 sock that has minimal compression on the right foot. There is no discharge from the right first toe and patient denies any fevers, chills, dizziness, weakness, shortness of breath or palpitations. Patient was reassured that at this time there needs to be no further intervention as the toe seems to be healing well and he was counseled on foot hygiene especially as he seems to be cutting his toenails too short which leads to the ingrown toenail. Patient had further questions about his disability and he was informed that at this time he would not qualify for disability as his venous insufficiency with wounds have completely resolved and patient has been discharged from both podiatry and wound clinic without any further interventions at this time. Patient was adamant about not being discharged for his disability but previous doctors as he continues to have swelling of his foot. Patient was once again counseled about venous insufficiency and the need for leg elevation and compression stockings which he seems to be noncompliant with. 08/09/2024: Patient is Norwegian-speaking and visit facilitated by a registered healthcare upset operator. Patient complained of right leg swelling and pain. He did not take any medication at home for the pain. He is compliant with his compression stockings and leg elevation. He also endorses improvement of leg swelling after ambulation. Upon exam legs did not appear to be swollen and no signs of venous ulcers. Will prescribe celecoxib 200 Mg p.o. twice daily as needed for 1 month. Patient has follow-up appointment with vascular surgeon for his venous insufficiency. Patient is requesting to see Dr. Gates, was told that he can make an appointment to see her. Objective/Exam Narrative Physical exam: Constitutional Alert, oriented x 3 and comfortable HEENT Vision grossly intact. Patent nares. Trachea midline Respiratory Chest normal on inspection and clear auscultation bilaterally Cardiovascular S1 and S2 audible, RRR. No murmurs carotid bruit. No gross JVD. Abdominal Soft and non tender to palpation in all quadrants. BS + Genitourinary No bladder tenderness, no flank pain. Normal to palpation Musculoskeletal Extremities tone within normal limits. Trace LE edema. Neurological CN II - XII grossly intact. Extremity motor and sensation grossly intact. Skin Warm, dry and intact. No apparent lesions. Psychiatric Patient has good affect, is cooperative Assessment & Plan Diagnosis / Problem List (1) Chronic venous insufficiency of lower extremity: Status: Acute Assessment & Plan: Patient complained of leg swelling and pain. He is compliant with compression stocking use. He also has follow-up with vascular surgery for definitive management Plan: - Celebrex 200 Mg p.o. twice daily as needed for 1 month. Plan Plan of care discussed with Attending Dr. Hong Carreon MD PGY 1 Additional Assessment Internal Medicine Attending Note: Case discussed with and agree with note and management plan of Resident Physician as per Resident's Note above. Issues of concern for present visit are as follows: Follow-up visit. Patient states swelling and pain of right leg. Physical exam without significant edema. Using compression stockings and leg elevation. No evidence of ulceration. Patient has follow-up appoint with vascular surgery for venous insufficiency. Patient given celecoxib for as needed use for discomfort. Pietro Pitts MD Physician Billing Established Patient Established Patient: E/M Level 3-CPT 37214 Office Procedures [facility] Level of Care Nursing/Assessment Patient Status: Established Patient Nursing Assessment/Reassessment: Medication Reconciliation, Update PMH in EMR and Vital Signs Coordination of Care: Complex Care and Chronic Disease 1-5, Consent,records obtained, informed consent, Education Simp Pt/Fam and Staff clarify orders Special Needs: Language special needs Established Patient Charge Established Patient Point Assignment: 85 Established Patient Point Charge: EP Level 3 (80-115)
== END 2024-08-09 15:13 | disposition home or self-care (01) ==
LOC: HODAHC 14:24
PROVIDERS: PCP Student in an Organized Health Care Education/Training Program; Referring Provider Student in an Organized Health Care Education/Training Program; Supervising Provider Internal Medicine
DX: I87.2 Venous insufficiency (chronic) (peripheral) (principal)
CPT/HCPCS: 99213; G0463

== ENCOUNTER 2024-08-20 14:36 | Outpatient (AMB) | payer MEDICAID, SELFPAY ==
[2024-08-20 15:28] VITALS: BP 119/78; PULSE 68; RESP 18; TEMP 36.6; O2SAT 96; BMI 34.8
--- NOTE | 2024-08-20 15:28 | PD.RESCLINIC ---
Vital Signs 08/20/24 15:28 Height 1.7 m Height Method Stated Weight 100.754 kg Weight Measurement Method Standing Scale BMI 34.8 BP 119/78 Blood Pressure Source Automatic Cuff Blood Pressure Location Right Upper Arm Position Sitting Respiration 18 Pulse 68 Pulse Source Monitor Temp 97.8 F Temp Source Temporal Artery Scan Pulse Oximetry (%) 96 Oxygen Delivery Method Room Air Allergies/Meds Allergies & Medications Allergies No Known Allergies Allergy (Verified 08/20/24 15:29) Medication Reconciliation terbinafine HCl 250 mg tablet 250 mg PO QDAY 2 months #30 tabs 12/08/23 [Rx Confirmed 08/20/24] compress.stocking,knee,reg,med ([employer] Ultrasheer) #2 ea 01/12/24 [Rx Confirmed 08/20/24] comp.stocking,thigh,long,large #2 ea 02/13/24 [Rx Confirmed 08/20/24] doxycycline hyclate 100 mg capsule 100 mg PO BID paronychia #20 caps 03/03/24 [Rx Confirmed 08/20/24] celecoxib 200 mg capsule 200 mg PO BID PRN pain 1 month #60 caps 08/09/24 [Rx Confirmed 08/20/24] comp.stocking,knee,long,medium #12 ea 08/20/24 [Rx] MA Intake Visit Data Collection New Patient or Established: Established Patient (seen at [facility] within 3 years) Seen by Clinical Staff ONLY (RN/BLU): No Pain Present Currently: No Pain scale:: 0 Pain Scale Used: Henao-Pastrana/Numerical Feather Edger Required: Yes PCP or OBGYN visit in last 3 months: No Hx Now: No Do You Feel Safe at Home: Yes Authorities Contacted: N/A Smoking Status Smoking Status: Never smoker Immunization / Flu Flu Vaccine in the Last 12 Months: No Flu Vaccine Exclusion Criteria: No Exclusion Criteria Past Medical History Past Medical History CARDIAC: Negative Congestive Heart Failure RESPIRATORY: Negative Chronic Obstructive Pulmonary Disease (COPD) GENITOURINARY: Negative Renal Disease ENDOCRINE: Negative Diabetes Mellitus Type 1 or Diabetes Mellitus Type 2 Social History SMOKING STATUS: Smoking status: Never smoker ALCOHOL: Alcohol Intake: Never LIVES WITH: Lives With: Family Patient Portal Questionaires Social History Tobacco History Smoking Status: Never smoker Alcohol History Alcohol Intake: Never Domestic Abuse History Do You Feel Safe at Home: Yes Review of Systems Report any current symptoms Only answer those that you have currently: Past Medical History Past Medical History Have you ever been diagnosed with any of the following: Cardiology Problems Congestive Heart Failure: No Respiratory Problems Chronic Obstructive Pulmonary Disease (COPD): No Genital/Urinary Problems Renal Disease: No Endocrine Problems Diabetes Mellitus Type 1: No Diabetes Mellitus Type 2: No History of Present Illness LUCILA Park is a 42-year-old male with history of obesity grade 1 who pre?sented with a chief complaint of right lower extremity pain and swelling. He was found to have sepsis secondary to right lower extremity cellulitis. 07/06/2023 . . . 07/26/2024: Patient seen in the office as walk-in appointment. Patient is following up for his right big toe ingrown nail. He followed up with wound clinic on Friday and plan was for no further intervention or need for antibiotics. Patient is concerned about swelling of his lower extremities however on physical examination there is no swelling or erythema. Patient is wearing 1 sock that has minimal compression on the right foot. There is no discharge from the right first toe and patient denies any fevers, chills, dizziness, weakness, shortness of breath or palpitations. Patient was reassured that at this time there needs to be no further intervention as the toe seems to be healing well and he was counseled on foot hygiene especially as he seems to be cutting his toenails too short which leads to the ingrown toenail. Patient had further questions about his disability and he was informed that at this time he would not qualify for disability as his venous insufficiency with wounds have completely resolved and patient has been discharged from both podiatry and wound clinic without any further interventions at this time. Patient was adamant about not being discharged for his disability but previous doctors as he continues to have swelling of his foot. Patient was once again counseled about venous insufficiency and the need for leg elevation and compression stockings which he seems to be noncompliant with. 08/09/2024: Patient is Jordanian-speaking and visit facilitated by a registered healthcare sign language interpreter. Patient complained of right leg swelling and pain. He did not take any medication at home for the pain. He is compliant with his compression stockings and leg elevation. He also endorses improvement of leg swelling after ambulation. Upon exam legs did not appear to be swollen and no signs of venous ulcers. Will prescribe celecoxib 200 Mg p.o. twice daily as needed for 1 month. Patient has follow-up appointment with vascular surgeon for his venous insufficiency. Patient is requesting to see Dr. Gates, was told that he can make an appointment to see her. 08/20/2024: Patient was counseled extenmsively re: no need for disability anymroe as he is at full functional capacity. He will be given a letter for return to work. No other complaints at this time. Foilow up scheduled for October,. Followed up with vascular surgery, recommend continuing compression socks. Will do cryo for varicose veins if needed. Blood work ordered for next visit, request sent to [facility]. Review of Systems Review of Systems Narrative Review of Systems: GENERAL: Denies fevers/chills, diaphoresis. HEENT: Denies headache or visual/hearing changes. Denies nasal discharge. NEURO: Denies unusual weakness or difficulty speaking. CARDIO: Denies chest pain, palpitations. PULM: Denies SOB, cough, wheezing. GI: Denies abdominal pain, no N/V, no C/D. Reports having BMs URO: Denies burning/itching/pain/urinary changes. MSK/EXT/SKIN: Denies skeletal/muscle pain, changes in upper or lower extremities, itchiness, superficial skin chnages. PSYCH: Cooperative, pleasant mood & affect. The rest of the review of systems is otherwise negative. Objective/Exam Narrative Physical exam: Constitutional Alert, oriented x3 and comfortable HEENT Vision grossly intact. Patent nares. Trachea midline. Respiratory Chest normal on inspection and clear to auscultation bilaterally. Cardiovascular S1 and S2 audible, RRR. No murmurs or carotid bruit. No gross JVD. Abdominal Soft and non tender to palpation in all quadrants. BS + Genitourinary No bladder tenderness, no flank pain. Normal to palpation. Musculoskeletal Extremities tone within normal limits. 1+ LE edema, wearing compression socks upto mid-salinas. Neurological CN II - XII grossly intact. Extremity motor and sensation grossly intact. Skin Warm, dry and intact. No apparent lesions. Psychiatric Patient has a good affect, is cooperative. Assessment & Plan Diagnosis / Problem List (1) Chronic venous insufficiency of lower extremity: Status: Acute Assessment & Plan: Patient complained of leg swelling and pain. He is compliant with compression stocking use. He also has follow-up with vascular surgery for definitive management Hx of Celebrex 200 Mg p.o. twice daily, now discontinued Plan: Followed up with vascular surgery, recommend continuing compression socks. Will do cryo for varicose veins if needed. Advised compression socks @ 20/30mmHg, with coverage up to knees Plan Follow up scheduled for October, Blood work for [facility] ordered Office Procedures [facility] Level of Care Nursing/Assessment Patient Status: Established Patient Nursing Assessment/Reassessment: Medication Reconciliation, Update PMH in EMR and Vital Signs Coordination of Care: Complex Care and Chronic Disease 1-5, Consent,records obtained, informed consent, Lab and Imaging orders and Staff clarify orders Established Patient Charge Established Patient Point Assignment: 85 Established Patient Point Charge: Level 3 (80-115)
== END 2024-08-20 15:27 | disposition home or self-care (01) ==
LOC: HODAHC 14:36
PROVIDERS: Supervising Provider Internal Medicine; Visit Provider Student in an Organized Health Care Education/Training Program
DX: I87.2 Venous insufficiency (chronic) (peripheral) (principal)
CPT/HCPCS: 99213; G0463

== ENCOUNTER 2024-11-16 10:46 | Outpatient (AMB) | payer MEDICAID, SELFPAY ==
[2024-11-16 11:20] VITALS: BP 111/70; PULSE 73; RESP 18; TEMP 36.6; O2SAT 97; BMI 34.7
--- NOTE | 2024-11-16 11:20 | ACNOTE_ITS ---
Vital Signs 11/16/24 11:20 Height 1.7 m Height Method Stated Weight 100.301 kg Weight Measurement Method Standing Scale BMI 34.7 BP 111/70 Blood Pressure Source Automatic Cuff Blood Pressure Location Right Upper Arm Position Sitting Respiration 18 Pulse 73 Pulse Source Monitor Temp 97.8 F Temp Source Temporal Artery Scan Pulse Oximetry (%) 97 Oxygen Delivery Method Room Air Allergies/Meds Allergies & Medications Allergies No Known Allergies Allergy (Verified 11/16/24 11:21) Medication Reconciliation terbinafine HCl 250 mg tablet 250 mg PO QDAY 2 months #30 tabs 12/08/23 [Rx Confirmed 11/16/24] compress.stocking,knee,reg,med ([employer]) #2 ea 01/12/24 [Rx Confirmed 11/16/24] comp.stocking,thigh,long,large #2 ea 02/13/24 [Rx Confirmed 11/16/24] doxycycline hyclate 100 mg capsule 100 mg PO BID paronychia #20 caps 03/03/24 [Rx Confirmed 11/16/24] comp.stocking,knee,long,medium #12 ea 08/20/24 [Rx Confirmed 11/16/24] ibuprofen 400 mg tablet (IBU) 400 mg PO Q12H PRN for pain #30 tabs 11/16/24 [Rx] MA Intake Visit Data Collection New Patient or Established: Established Patient (seen at [facility] within 3 years) Seen by Clinical Staff ONLY (RN/MA): No Pain Present Currently: No Pain scale:: 0 Pain Scale Used: [employer] Manager Required: Yes PCP or OBGYN visit in last 3 months: No Hx Now: No Do You Feel Safe at Home: Yes Authorities Contacted: N/A Smoking Status Smoking Status: Never smoker Immunization / Flu Flu Vaccine in the Last 12 Months: No Flu Vaccine Exclusion Criteria: No Exclusion Criteria Past Medical History Past Medical History CARDIAC: Negative Congestive Heart Failure RESPIRATORY: Negative Chronic Obstructive Pulmonary Disease (COPD) GENITOURINARY: Negative Renal Disease ENDOCRINE: Negative Diabetes Mellitus Type 1 or Diabetes Mellitus Type 2 Social History SMOKING STATUS: Smoking status: Never smoker ALCOHOL: Alcohol Intake: Never LIVES WITH: Lives With: Family Patient Portal Questionaires Social History Tobacco History Smoking Status: Never smoker Alcohol History Alcohol Intake: Never Domestic Abuse History Do You Feel Safe at Home: Yes Review of Systems Report any current symptoms Only answer those that you have currently: Past Medical History Past Medical History Have you ever been diagnosed with any of the following: Cardiology Problems Congestive Heart Failure: No Respiratory Problems Chronic Obstructive Pulmonary Disease (COPD): No Genital/Urinary Problems Renal Disease: No Endocrine Problems Diabetes Mellitus Type 1: No Diabetes Mellitus Type 2: No History of Present Illness LUCILA Park is a 42-year-old male with history of obesity grade 1 who pre?sented with a chief complaint of right lower extremity pain and swelling. He was found to have sepsis secondary to right lower extremity cellulitis. 07/06/2023 . . . 07/26/2024: Patient seen in the office as walk-in appointment. Patient is following up for his right big toe ingrown nail. He followed up with wound clinic on Friday and plan was for no further intervention or need for antibiotics. Patient is concerned about swelling of his lower extremities however on physical examination there is no swelling or erythema. Patient is wearing 1 sock that has minimal compression on the right foot. There is no discharge from the right first toe and patient denies any fevers, chills, dizziness, weakness, shortness of breath or palpitations. Patient was reassured that at this time there needs to be no further intervention as the toe seems to be healing well and he was counseled on foot hygiene especially as he seems to be cutting his toenails too short which leads to the ingrown toenail. Patient had further questions about his disability and he was informed that at this time he would not qualify for disability as his venous insufficiency with wounds have completely resolved and patient has been discharged from both podiatry and wound clinic without any further interventions at this time. Patient was adamant about not being discharged for his disability but previous doctors as he continues to have swelling of his foot. Patient was once again counseled about venous insufficiency and the need for leg elevation and compression stockings which he seems to be noncompliant with. 08/09/2024: Patient is Macedonian-speaking and visit facilitated by a registered healthcare arm rest builder. Patient complained of right leg swelling and pain. He did not take any medication at home for the pain. He is compliant with his compression stockings and leg elevation. He also endorses improvement of leg swelling after ambulation. Upon exam legs did not appear to be swollen and no signs of venous ulcers. Will prescribe celecoxib 200 Mg p.o. twice daily as needed for 1 month. Patient has follow-up appointment with vascular surgeon for his venous insufficiency. Patient is requesting to see Dr. Gates, was told that he can make an appointment to see her. 08/20/2024: Patient was counseled extenmsively re: no need for disability anymroe as he is at full functional capacity. He will be given a letter for return to work. No other complaints at this time. Foilow up scheduled for October,. Followed up with vascular surgery, recommend continuing compression socks. Will do cryo for varicose veins if needed. Blood work ordered for next visit, request sent to [employer]. 11/16/2024: Came for routine follow-up visit. Still noted to have mild swelling in the right lower extremity but denies any pain and ulceration. Reported that he is keeping his leg end elevation during the night and following up with the home care. Patient was requested to get compression stockings with pressure of 20 to 30 mmHg. Otherwise patient is doing fairly well and no complaints. Labs reviewed and unremarkable except for mildly elevated bilirubin, AST and ALT. No need for disability as patient is at his functional capacity and explained this to the patient with the help of wind operations supervisor Review of Systems Review of Systems Systems Reviewed: All systems reviewed, normal except as documented Objective/Exam Narrative Physical exam: General: Awake. HEENT: Normocephalic, atraumatic, mucous membranes moist. Heart: Regular rate and rhythm, no murmurs. Lungs: Clear to auscultation with no wheezing or crackles. Abdomen: Soft, nondistended, nontender, positive bowel sounds. ?No guarding or rebound tenderness. Neurologic: Alert and oriented x3, no gross neurological deficit, and patient able to move all 4 extremities. Extremities: Right lower extremity swelling upto ankle with healed ulceration on dorsal aspect of foot Skin: No rash or ecchymoses. Assessment & Plan Diagnosis / Problem List (1) Chronic venous insufficiency of lower extremity: Status: Acute Assessment & Plan: Patient complained of leg swelling. He also has follow-up with vascular surgery for definitive management Hx of Celebrex 200 Mg p.o. twice daily, now discontinued Plan: Recommended leg end elevation and compression stockings. Avoid long episodes of standing. 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
== END 2024-11-16 12:07 | disposition home or self-care (01) ==
PROVIDERS: PCP Student in an Organized Health Care Education/Training Program; Referring Provider Student in an Organized Health Care Education/Training Program; Supervising Provider Internal Medicine; Visit Provider Student in an Organized Health Care Education/Training Program
DX: I87.2 Venous insufficiency (chronic) (peripheral) (principal); R74.8 Abnormal levels of other serum enzymes
CPT/HCPCS: 99213; G0463